=== PATIENT | male | born 1990 | race Caucasian/White ===

== ENCOUNTER 2017-11-18 13:15 | Outpatient (CLI) | payer MEDICARE, MEDICAID ==
[~2017-11-18 13:15] MED LIST: ALBU6.7H INH; ATOR20TA PO; CEPH500C5 PO; CHOL100046 PO; DIPH-423 PO; DOCU100C23 PO; FLUT100B3 PO; LEVE750T6 PO; MELATONIN PO; QUET-1 PO; [UNRECOGNIZED DRUG - CODE] PO
== END 2017-11-18 23:59 | disposition home or self-care (01) ==
LOC: RAD 13:15
PROVIDERS: ATTEND Physician Assistant
DX: Z87.898 Personal history of other specified conditions (principal)
CPT/HCPCS: 95816

== ENCOUNTER 2018-11-04 22:17 | Emergency (ER) | payer MEDICARE, MEDICAID ==
[~2018-11-04] VITALS: Ht 162.6 cm; Wt 85.8 kg
[~2018-11-04 22:17] MED LIST changes: -CEPH500C5 PO; +DOCU-273 PO; -DOCU100C23 PO
[2018-11-04 22:33] VITALS: BP 126/88
--- NOTE | 2018-11-04 23:19 | NUR ---
orthopedic rn at bedside to place cast to right lower arm for fracture of pinkey. pt st staff at bedside, pt lives at a [facility]. pts pain is 2-4 out of 10.
== END 2018-11-04 23:36 | disposition home or self-care (01) ==
LOC: ER 22:18
DX: S62.396A Other fracture of fifth metacarpal bone, right hand, initial encounter for closed fracture (principal); S60.412A Abrasion of right middle finger, initial encounter; S60.414A Abrasion of right ring finger, initial encounter; Z88.8 Allergy status to other drugs, medicaments and biological substances; Z79.899 Other long term (current) drug therapy; W22.01XA Walked into wall, initial encounter; Y93.89 Activity, other specified; Y92.89 Other specified places as the place of occurrence of the external cause; Y99.9 Unspecified external cause status
CPT/HCPCS: 29125; 73130; 99283

== ENCOUNTER 2018-11-19 14:37 | Outpatient (CLI) | payer MEDICARE, MEDICAID ==
[2018-11-19 14:43] VITALS: BP 129/81
== END 2018-11-19 15:23 | disposition home or self-care (01) ==
LOC: ORTHO 14:37
PROVIDERS: ATTEND Orthopaedic Surgery
DX: S62.396D Other fracture of fifth metacarpal bone, right hand, subsequent encounter for fracture with routine healing (principal); X58.XXXD Exposure to other specified factors, subsequent encounter
CPT/HCPCS: 29125; 73130; 99213

== ENCOUNTER 2018-12-09 14:50 | Outpatient (CLI) | payer MEDICARE, MEDICAID ==
[2018-12-09 15:10] VITALS: BP 123/87
== END 2018-12-09 16:10 | disposition home or self-care (01) ==
LOC: ORTHO 14:50
PROVIDERS: ATTEND Orthopaedic Surgery
DX: S62.336D Displaced fracture of neck of fifth metacarpal bone, right hand, subsequent encounter for fracture with routine healing (principal); X58.XXXD Exposure to other specified factors, subsequent encounter
CPT/HCPCS: 73130; G0463

== ENCOUNTER 2024-08-14 09:32 | Emergency (ER) | payer MEDICARE, MEDICAID ==
[~2024-08-14] VITALS: Ht 162.6 cm; Wt 82.4 kg
[~2024-08-14 09:32] MED LIST changes: -ALBU6.7H INH; +ALBU6.7H14 INH
[2024-08-14 09:38] VITALS: BP 127/82; PULSE 102; O2SAT 95
[2024-08-14 11:30] LABS: BASOPHILS % (AUTO) 0.4 % (0-1); EOSINOPHILS % (AUTO) 0 % (0-6); HEMATOCRIT 48.2 % (42.0-52.0); HEMOGLOBIN 16.7 g/dl (14.0-17.9); LYMPHOCYTES # (AUTO) 1.2 X10'3 (1.1-4.8); LYMPHOCYTES % (AUTO) 11.7 % (21-51); MEAN CORPUSCULAR HGB CONC 34.7 g/dL (33.0-36.5); MEAN CORPUSCULAR VOLUME 89.3 FL (78-98); MEAN PLATELET VOLUME 8.2 FL (7.4-10.4); MONOCYTES # (AUTO) 1.1 X10'3 (0-0.9); MONOCYTES % (AUTO) 11.6 % (2-12); NEUTROPHILS # (AUTO) 7.5 X10'3 (1.8-7.7); NEUTROPHILS % (AUTO) 76.3 % (42-75); PLATELET COUNT 166 X10'3 (140-440); RED CELL DISTRIBUTION WIDTH 13.5 % (11.5-14.5); WHITE BLOOD COUNT 9.9 X10'3 (4.5-11.0)
[2024-08-14 12:00] LABS: ALANINE AMINOTRANSFERASE 40 U/L (12-78); ALBUMIN 4.7 G/DL (3.4-5.0); ALBUMIN/GLOBULIN RATIO 1.1 (1.1-1.5); ALKALINE PHOSPHATASE 91 IU/L (46-116); ANION GAP 6 (8-16); ASPARTATE AMINO TRANSFERASE 23 U/L (10-37); BILIRUBIN,TOTAL 0.6 MG/DL (0.1-1.0); BLOOD UREA NITROGEN 25 MG/DL (7-18); BUN/CREATININE RATIO 29.8 (10.0-20.0); CHLORIDE 106 MMOL/L (99-107); CREATININE 0.84 MG/DL (0.60-1.10); GLUCOSE 112 MG/DL (70-104); POTASSIUM 4.8 MMOL/L (3.5-5.1); SODIUM 146 MMOL/L (135-145); TOTAL CARBON DIOXIDE 34.1 MMOL/L (24-32); TOTAL PROTEIN 9.1 G/DL (6.4-8.2); eCRCL 106 ML/MIN; eGFR > 90 ML/MIN
[2024-08-14 12:27] VITALS: RESP 16; TEMP 98.5
== END 2024-08-14 12:36 | disposition home or self-care (01) ==
LOC: ER 09:33
DX: R09.A2 Foreign body sensation, throat (principal); F32.A Depression, unspecified; Z79.899 Other long term (current) drug therapy; Z88.8 Allergy status to other drugs, medicaments and biological substances
CPT/HCPCS: 36415; 71045; 80053; 85025; 99284

== ENCOUNTER 2024-09-25 13:25 | Emergency (ER) | payer MEDICARE, MEDICAID ==
[~2024-09-25] VITALS: Ht 167.6 cm; Wt 85.5 kg
[2024-09-25 13:37] VITALS: BP 115/75; PULSE 76; O2SAT 98
[2024-09-25] MEDS ORDERED: HYDR-3965 PO (14:48)
[2024-09-25 14:56] VITALS: RESP 16
[2024-09-25] MEDS: HYDROcodone/acetaminophen 5mg/325mg tablet PO ONE (14:56)
[2024-09-25 15:29] VITALS: TEMP 98
== END 2024-09-25 15:38 | disposition home or self-care (01) ==
LOC: ER 13:25
DX: S62.336A Displaced fracture of neck of fifth metacarpal bone, right hand, initial encounter for closed fracture (principal); Z88.8 Allergy status to other drugs, medicaments and biological substances; Z79.899 Other long term (current) drug therapy; W22.09XA Striking against other stationary object, initial encounter; Y93.89 Activity, other specified; Y92.89 Other specified places as the place of occurrence of the external cause; Y99.8 Other external cause status
CPT/HCPCS: 29125; 73130; 99283; A6449

== ENCOUNTER 2025-03-15 13:50 | Emergency (ER) | payer MEDICAID, MEDICARE ==
[~2025-03-15] VITALS: Ht 162.6 cm; Wt 34.1 kg
[2025-03-15 14:01] VITALS: BP 142/83; PULSE 86; RESP 17; TEMP 98.3; O2SAT 98
--- NOTE | 2025-03-15 14:49 | RADIOLOGY REPORT ---
CLINICAL INDICATION: HAND PAIN TECHNIQUE: 3, right DI HAND, COMPLETE (3VW MIN) Comparison: DI HAND, COMPLETE (3VW MIN) on DOS: 09/25/24 FINDINGS/IMPRESSION: : There is no evidence of acute fracture or dislocation. Soft tissues are unremarkable. 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
--- NOTE | 2025-03-15 15:12 | Physician Documentation ---
History of Present Illness ~ Chief Complaint: Hand pain Stated Complaint: R HAND PAIN Time Seen by MD: 15:00 Primary Medical Doctor: Evaristo EASLEY Patient is seen today with complaints of right hand pain after punching an object multiple times. Patient states this occurred just recently prior to arrival. He admits to prior injury of the right hand. He has no other concern or complaint at this time. Tetanus within 5 years: Yes Medication Reconciliation Allergies: Coded Allergies: methylphenidate (Verified Allergy, Unknown, 03/15/25) Scheduled Atorvastatin Calcium* (Lipitor*), 1 TAB PO HS, (Reported) Cholecalciferol (Vitamin D3) (Vitamin D), 2 CAP PO BID, (Reported) Docusate Sodium (Doc-Q-Lace), 2 CAP PO BID, (Reported) Fluticasone Furoate (Arnuity Ellipta), 50 MCG PO QPM, (Reported) Levetiracetam (Keppra), 750 MG PO BID, (Reported) Psyllium Husk (Reguloid), 3.4 GM PO QAM, (Reported) Quetiapine Fumarate* (Seroquel*), 100 MG PO BID, (Reported) Quetiapine Fumarate* (Seroquel*), 400 MG PO HS, (Reported) [melatononin], 5 MG PO HS, (Reported) Scheduled PRN Albuterol Sulfate (Proventil Hfa), 2 PUFFS INH QID PRN for cough or wheeze Diphenhydramine Hcl* (Benadryl*), 1 CAP PO HS PRN for itching, (Reported) Past Medical History Past Medical History: Seizures, Bronchitis, Depression Past Surgical History: no surgical history Other Past Family History: NONE Alcohol Use: None Drug Use: none Lives with: Other Lives In: Assisted Care Occupation: employed Review of Systems Constitutional: Denies: chills, fever, weakness Eyes: Denies: pain, blurred vision ENT: Denies: ear pain, nose pain, throat pain, mouth pain Respiratory: Denies: cough, shortness of breath Cardiovascular: Denies: chest pain, palpitations Gastrointestinal: Denies: abdominal pain, nausea, vomiting Genitourinary: Denies: burning, dysuria Male Genitalia: Denies: penile discharge, testicular pain Neurological: Denies: headache, dizziness Musculoskeletal: Denies: pain, swelling Integumentary: Denies: rash, lesions Allergic/Immunologic: Denies: hives, itching Hematologic/Lymphatic: Denies: no symptoms reported Psychiatric: Denies: depression, anxiety Physical Exam Vital Signs: Temperature: 98.3, Source: Oral, Heart Rate: 86, Respiratory Rate: 17, BP: 142/83, Pulse Oximetry: 98, Weight: 34.090 Physical Exam General: Awake and Alert, no acute distress. HEENT: Conjunctiva pink, Sclera clear, Mucus Membranes moist. Neck: Supple without masses and tenderness. Resp: Unlabored. Lungs clear to auscultation bilaterally. Heart: Regular Rate and rhythm, normal S1 and S2 without murmur, rub or gallop. Musculoskeletal: Patient on exam does have chronic appearing change in deformity of the right 5th metacarpal that is appreciable and palpable on exam. Patient does not have any significant tenderness to palpation of the 5th metacarpal and instead has tenderness to palpation of the distal end of the 4th metacarpal of the right hand. Patient has no other tenderness to palpation in his neurovascularly intact distally. Motor function intact distally. Extremities: No cyanosis,clubbing or edema. Skin: Warm and Dry. Progress Results/Orders Results/Orders Vital Signs 03/15/25 14:01 Temp 98.3 Pulse 86 Resp 17 B/P (MAP) 142/83 Pulse Ox 98 EKG/XRAY/CT/US/VASC/MRI Bone/Soft Tissue X-Ray (Ext.) : Additional Comment X-ray of right hand interpreted by myself today shows no sign of acute fracture, patient does have chronic appearing deformity of the healed fracture of the right 5th metacarpal bones in otherwise anatomic alignment. DIAGNOSTIC RADIOLOGY Patient: SALONI GROSS Medical Record: [id number] [place] : 1990, Age: 34 Sex: Male Location: ER Patient Status: REG ER Service Date/Time: 03/15/251406 Ordering Physician: JESSICA SNEED MD Exam: HAND, COMPLETE (3VW MIN) CLINICAL INDICATION: HAND PAIN TECHNIQUE: 3, right DI HAND, COMPLETE (3VW MIN) Comparison: DI HAND, COMPLETE (3VW MIN) on DOS: 09/25/24 FINDINGS/IMPRESSION: : There is no evidence of acute fracture or dislocation. Soft tissues are unremarkable. 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 Electronically Signed by:CARLOS DUGAN MD Date & Time: 03/15/25 1446 Dictated by: CARLOS DUGAN MD Dictation date and time: 03/15/25 1434 Primary Care Provider: NO PRIMARY CARE PROVIDER cc: JESSICA SNEED MD ~ Medical Decision Making Findings Patient is seen today with complaints of right hand pain after punching an object multiple times. Patient states this occurred just recently prior to arrival. He admits to prior injury of the right hand. He has no other concern or complaint at this time. Patient did have x-ray of right hand that showed no obvious fracture. Patient will follow up for repeat x-ray in 7-10 days if no better. Return to ED with any worsening, concerning or changing symptoms. Follow up with primary care in 3-5 days if no better as needed sooner. Departure Disposition: 01 HOME / SELF CARE / HOMELESS Impression: Primary Impression: Superficial bruising Condition: Stable Discharge Instructions: Contusion (Bruise) Additional Instructions: Patient did have x-ray of right hand that showed no obvious fracture. Patient will follow up for repeat x-ray in 7-10 days if no better. Return to ED with any worsening, concerning or changing symptoms. Follow up with primary care in 3-5 days if no better as needed sooner. Referrals: NO PRIMARY CARE PROVIDER (PCP) Signature Scribe Signature: No scribe Attestation: No scribe HOANG JACKSON PAC Mar 15, 2025 15:12
== END 2025-03-15 15:20 | disposition home or self-care (01) ==
LOC: ER 13:51
DX: S60.221A Contusion of right hand, initial encounter (principal); Z88.8 Allergy status to other drugs, medicaments and biological substances; F32.A Depression, unspecified; W26.9XXA Contact with unspecified sharp object(s), initial encounter; Y93.89 Activity, other specified; Y92.89 Other specified places as the place of occurrence of the external cause; Y99.8 Other external cause status
CPT/HCPCS: 73130; 99283